=== PATIENT | female | born 1955 | race Caucasian/White ===

== ENCOUNTER → 2016-11-04 | Outpatient (CLI) | payer OTHER | LOC: OPSV 12:27 | DX: G35 Multiple sclerosis (principal) | CPT/HCPCS: 96365; J2323; J7050 ==

== ENCOUNTER → 2016-12-01 | Outpatient (CLI) | payer OTHER ==
[~2016-12-01] VITALS: Ht 172.7 cm; Wt 97.5 kg
== END ==
LOC: OPSV 11-21 10:30
DX: G35 Multiple sclerosis (principal)
CPT/HCPCS: 96365; J2323; J7050; Q0163

== ENCOUNTER → 2016-12-29 | Outpatient (CLI) | payer OTHER ==
[~2016-12-29] VITALS: Ht 172.7 cm; Wt 97.5 kg
== END ==
LOC: OPSV 09:18
DX: G35 Multiple sclerosis (principal)
CPT/HCPCS: 96365; J2323; J7050; Q0163

== ENCOUNTER → 2017-01-26 | Outpatient (CLI) | payer OTHER ==
[~2017-01-26] VITALS: Ht 172.7 cm; Wt 97.5 kg
== END ==
LOC: OPSV 10:00
DX: G35 Multiple sclerosis (principal); Z88.8 Allergy status to other drugs, medicaments and biological substances
CPT/HCPCS: 96365; Q0163